=== PATIENT | female | born 1970 | race Two or more races ===

== ENCOUNTER 2024-07-29 18:49 | Emergency (ER) | payer OTHER ==
[~2024-07-29] VITALS: Ht 172.7 cm; Wt 108.4 kg
[~2024-07-29 18:49] MED LIST: ACETAMINOPHEN325 M1 PO; CALCITRIOL0.5 MCG PO; CALCIUM600 MG PO; CIPROFLOXACIN750 MG PO; CLONAZEPAM1 MG PO; DOCUSATE SODIU100 MG PO; GABAPENTIN800 MG PO; METHYLPRED4 MG/DOSE- PO; PERCOCET 5/3251 TAB PO; SYNTHROID137 MCG PO; VITAMIN D1000 UNI1 PO
[2024-07-29] MEDS ORDERED: ONDANSETRON HCL 2 MG/ML VIAL ONE (19:32)
[2024-07-29] MEDS ORDERED: KETOROLAC TROMETHAMINE 30 MG VIAL ONE (19:32)
[2024-07-29] MEDS ORDERED: 0.9 % SODIUM CHLORIDE 1,000 ML IV SCH (19:45)
[2024-07-29] MEDS ORDERED: KETOROLAC TROMETHAMINE 30 MG VIAL IV ONE (19:45)
[2024-07-29] MEDS ORDERED: ONDANSETRON HCL 2 MG/ML VIAL IV ONE (19:45)
[2024-07-29 19:48] LABS: BASO % 0.1 % (0.1-1.2); EOS # 0.01 (0.04-0.54); EOS % 0.1 % (0.7-7.0); HEMOGLOBIN 14.3 g/dL (11.2-15.7); LYMPH # 1.83 (1.18-3.74); LYMPH % 14.7 % (19.3-53.1); MEAN CORPUSCULAR HEMOGLOBIN 31.3 pg (25.6-32.2); MONO % 4.8 % (4.7-12.5); NEUT # 9.97 (1.56-6.13); NEUT % 79.8 % (34.0-71.1); PLATELET COUNT 407 K/uL (163-369); RED BLOOD COUNT 4.57 M/uL (3.93-5.22); RED CELL DISTRIBUTION WIDTH 13.5 % (11.6-14.4)
[2024-07-29 20:12] LABS: ALBUMIN 3.9 gm/dL (3.4-5.0); BILIRUBIN TOTAL 0.58 mg/dL (0.3-1.2); CREATININE SERUM 1.34 mg/dL (0.55-1.02); GFR 41.37; GLOBULINA 4.5 G/DL (2.4-3.5); TOTAL PROTEIN 8.4 gm/dL (6.4-8.2)
[2024-07-29 20:34] LABS: POTASSIUM 4.43 mEq/L (3.5-5.1)
[2024-07-29] MEDS ORDERED: TAMS0.4C PO (23:11)
[2024-07-29] MEDS ORDERED: CEPHALEXIN500 MG PO (23:11)
[2024-07-29] MEDS ORDERED: KETO10TA2 PO (23:11)
[2024-07-29] MEDS ORDERED: ONDANSETRON ODT8 MG PO (23:11)
[2024-07-29 23:19] LABS: PH,URINE 5.5 (5.0-8.0); URINE APPEARANCE Turbid; URINE BILIRRUBIN Small (NEGATIVE); URINE BLOOD Large; URINE COLOR Orange; URINE GLUCOSE Negative (NEGATIVE); URINE KETONE Trace (NEGATIVE); URINE LEUKOCYTE Small; URINE NITRATE Negative
[2024-07-29 23:23] LABS: URINE BACTERIA 1140.7 uL (0.0-1933); URINE CAST 8.17 uL (0.0-1.40); URINE EPITHELIAL CELLS 17.8 uL (0.0-38.8); URINE WBC 96.4 uL (0.0-23.2)
[2024-07-30 00:15] LABS: URINE PROTEIN 100 (NEGATIVE)
[2024-07-30 00:21] LABS: URINE MUCUS SCANT; URINE YEAST FEW /hpf
== END 2024-07-29 23:37 | disposition home or self-care (01) ==
LOC: ER 20:26
PROVIDERS: General Practice
DX: N20.1 Calculus of ureter (principal); I10 Essential (primary) hypertension; N13.30 Unspecified hydronephrosis

== ENCOUNTER 2024-10-07 06:50 | Day surgery (SDC) | payer OTHER ==
[2024-10-05 12:45] LABS: URINE APPEARANCE Clear; URINE BILIRRUBIN Small (NEGATIVE); URINE BLOOD Negative; URINE COLOR Dark Yellow; URINE GLUCOSE Negative (NEGATIVE); URINE KETONE 15 (NEGATIVE); URINE LEUKOCYTE Small; URINE NITRATE Negative; URINE PROTEIN 30 (NEGATIVE); URINE UROBILINOGEN 1.0 E.U./dl
[2024-10-05 12:46] LABS: BASO % 0.2 % (0.1-1.2); EOS # 0.20 (0.04-0.54); EOS % 2.3 % (0.7-7.0); LYMPH # 2.82 (1.18-3.74); LYMPH % 32.6 % (19.3-53.1); MEAN PLATELET VOLUME 9.20 fl (9.4-12.4); MONO # 0.40 (0.24-0.82); MONO % 4.6 % (4.7-12.5); NEUT # 5.17 (1.56-6.13); NEUT % 60.0 % (34.0-71.1); RED CELL DISTRIBUTION WIDTH 12.4 % (11.6-14.4)
[2024-10-05 12:50] LABS: URINE BACTERIA 219.5 uL (0.0-1933); URINE EPITHELIAL CELLS 41.3 uL (0.0-38.8); URINE RBC 19.7 uL (0.0-20.8); URINE WBC 51.8 uL (0.0-23.2)
[2024-10-05 13:15] LABS: URINE CAST 0.87 uL (0.0-1.40)
[2024-10-05 13:16] VITALS: BP 120/85
[2024-10-05 13:21] LABS: INR 1.03
[2024-10-05 13:27] LABS: RH POSITIVE
[2024-10-05 13:50] LABS: ALT/SGPT 14.0 U/L (12-78); AST/SGOT 15.0 U/L (15-37); BILIRUBIN TOTAL 0.49 mg/dL (0.3-1.2); BUN CREA RATIO 14.0 (7.0-25.0); CREATININE SERUM 1.01 mg/dL (0.55-1.02); GFR 57.34; GLOBULINA 3.6 G/DL (2.4-3.5); GLUCOSE FASTING 77.0 mg/dL (65-100); OSMOLALITY SERUM 281.0 MOSM/KG (275-295)
[~2024-10-07] VITALS: Ht 172.7 cm; Wt 107.5 kg
[~2024-10-07 06:50] MED LIST changes: +CALCIUM 600+D1 EAC1 PO; +CEPHALEXIN500 MG PO; +FOLIC ACID1 MG PO; +KETO10TA2 PO; +MELOXICAM7.5 MG PO; +METHOTREXATE2.5 MG PO; +ONDANSETRON ODT8 MG PO; +TAMS0.4C PO; +VITAMIN D310 MC4 PO
[2024-10-07] MEDS ORDERED: POVIDONE-IODINE 118 ML BOTT TOP ONE (07:30)
[2024-10-07] MEDS ORDERED: SUGAMMADEX SODIUM 200 MG/2 ML VIAL IV ONE (08:53)
[2024-10-07] MEDS ORDERED: MORPHINE SULFATE 4 MG/ML VIAL IV ONE (09:35)
[2024-10-07] MEDS ORDERED: RINGERS SOLUTION,LACTATED 1,000 ML IV SCH (10:15)
[2024-10-07 11:02] VITALS: BP 120/49; O2SAT 100
== END 2024-10-07 11:10 | disposition home or self-care (01) ==
LOC: CIR.AMB 06:50
PROVIDERS: ATTEND Student in an Organized Health Care Education/Training Program
DX: N85.00 Endometrial hyperplasia, unspecified (principal); N95.0 Postmenopausal bleeding